=== PATIENT | female | born 1990 | race African-American/Black ===

== ENCOUNTER 2016-07-24 00:49 | Emergency (ER) | payer SELFPAY ==
[~2016-07-24] VITALS: Ht 162.6 cm; Wt 86.0 kg
[~2016-07-24 00:49] MED LIST: BACT800T5 PO; LISI-363 PO
[2016-07-24 00:52] VITALS: BP 184/90; PULSE 60; RESP 18; TEMP 97.4; O2SAT 100
[2016-07-24 09:00] VITALS: BP 161/109; PULSE 58; RESP 16; O2SAT 100
[2016-07-24] MEDS ORDERED: ONDANSETRON HCL 4 MG/2 ML VIAL IV ONE (09:00)
[2016-07-24] MEDS ORDERED: LOPERAMIDE HCL 2 MG CAP PO ONE (09:00)
--- NOTE | 2016-07-24 09:03 | PD ---
HPI Chief Complaint: Abdominal Pain Time Seen by Provider: 08:45 Travel History International Travel<30 days: No Contact w/Intl Traveler<30days: No Traveled to known affect area: No History of Present Illness HPI So well 26 year-old woman, presents emergent [place] of epigastric pain started last night associated with nausea and vomiting and diarrhea today. States she did feel bit of bright red blood in her stool this morning. She otherwise has been feeling generally well and healthy. No definite sick contacts, no travel, no antibiotics recently. Last initial period July 10, she states she is sexually active with women only for the past 7 years. No history of abdominal surgeries. No other complaints. 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 SKIN: Warm and dry. NECK: Trachea midline. No JVD. CARDIOVASCULAR: Regular rate and rhythm. No murmur appreciated. RESPIRATORY: No accessory muscle use. Clear to auscultation. Breath sounds equal bilaterally. GASTROINTESTINAL: Normal contour and appearance. Abdomen is soft. Is no tenderness or guarding at all. RECTAL: Normal external peritonitis hemorrhoids. Just some mucus in the rectal vault. Guaiac negative. MUSCULOSKELETAL: No obvious deformities. No clubbing. No cyanosis. No edema. NEUROLOGICAL: Awake and alert. No obvious cranial nerve deficits. Motor grossly within normal limits. Normal speech. PSYCHIATRIC: Appropriate mood and affect; insight and judgment normal. Data Data Last Documented VS Vital Signs Date Time Temp Pulse Resp B/P Pulse Ox O2 Delivery O2 Flow Rate FiO2 07/24/16 09:00 58 16 161/109 100 Room Air 07/24/16 00:52 97.4 Orders Loperamide (Imodium) (07/24/16 09:00) Ondansetron Inj (Zofran Inj) (07/24/16 09:00) Complete Blood Count With Diff (07/24/16 09:00) Comprehensive Metabolic Panel (07/24/16 09:00) Ed Urine Pregnancytest Poc (07/24/16 09:00) Labs Laboratory Tests Test 07/24/16 09:15 White Blood Count 5.1 TH/MM3 Red Blood Count 4.58 MIL/MM3 Hemoglobin 7.9 GM/DL Hematocrit 26.5 % Mean Corpuscular Volume 57.8 FL Mean Corpuscular Hemoglobin 17.3 PG Mean Corpuscular Hemoglobin 30.0 % Concent Red Cell Distribution Width 18.2 % Platelet Count 395 TH/MM3 Mean Platelet Volume 9.1 FL Neutrophils (%) (Auto) 69.3 % Lymphocytes (%) (Auto) 20.9 % Monocytes (%) (Auto) 8.3 % Eosinophils (%) (Auto) 0.0 % Basophils (%) (Auto) 1.5 % Neutrophils # (Auto) 3.5 TH/MM3 Lymphocytes # (Auto) 1.1 TH/MM3 Monocytes # (Auto) 0.4 TH/MM3 Eosinophils # (Auto) 0.0 TH/MM3 Basophils # (Auto) 0.1 TH/MM3 CBC Comment AUTO DIFF Differential Comment AUTO DIFF CONFIRMED Sodium Level 137 MEQ/L Potassium Level 3.5 MEQ/L Chloride Level 106 MEQ/L Carbon Dioxide Level 23.2 MEQ/L Anion Gap 8 MEQ/L Blood Urea Nitrogen 7 MG/DL Creatinine 0.59 MG/DL Estimat Glomerular Filtration 147 ML/MIN Rate Random Glucose 94 MG/DL Calcium Level 8.7 MG/DL Total Bilirubin 0.2 MG/DL Aspartate Amino Transf 17 U/L (AST/SGOT) Alanine Aminotransferase 11 U/L (ALT/SGPT) Alkaline Phosphatase 138 U/L Total Protein 8.7 GM/DL Albumin 3.6 GM/DL [facility] Medical Decision Making Medical Screen Exam Complete: Yes Emergency Medical Condition: Yes Interpretation(s) LABS: Hemoglobin 7.9, microcytic indices CMP unremarkable Differential Diagnosis Gastroenteritis, food poisoning, colitis, other Narrative Course Medical decision making INITIAL: Well-appearing 18 year-old woman presents with nausea vomiting diarrhea with some bright red blood in the diarrhea. Suspect gastroenteritis some rectal inflammation. I don't think she likely is dysentery. She looks well. She had 2 stools altogether. We'll check basic labs, evaluate stool if she goes while she is in the emergency department, supportive treatment. Diagnosis Primary Impression: Nausea vomiting and diarrhea Additional Impression: Anemia Qualified Code: D64.9 - Anemia, unspecified type Additional Instructions: Take Zofran as needed for nausea or vomiting. Take loperamide as needed for diarrhea. Follow-up with your primary doctor in the next 2-4 days. Not completely well. Return to the emergency department for any worsening abdominal pain, high fevers , or worsening bloody diarrhea. Med/Other Pt SpecificInfo: Prescription(s) given Scripts Loperamide 2 Mg Tab2 Mg PO DIRECTED PRN (DIARRHEA) #8 TAB One tablet after each loose stool. Not to exceed 8 tablets per day. Prov:Noah Ruth MD 07/24/16 Ondansetron Odt (Zofran Odt)4 Mg Tab4 Mg SL Q8HR PRN (Nausea/Vomiting) #15 TAB May substitute non-ODT form. Prov:Noah Ruth MD 07/24/16 Ferrous Sulfate (Iron)325 Mg Dta315 Mg PO DAILY 30 Days Ref 0 Take Prov:Noah Ruth MD 07/24/16 Disposition: 01 DISCHARGE HOME Condition: Stable Noah Ruth MD Jul 24, 2016 09:03
[2016-07-24] MEDS ORDERED: LISI40TA PO (09:05)
[2016-07-24 09:54] LABS: AUTOMATED NEUTROPHIL # 3.5 TH/MM3 (1.8-7.7); BASOPHIL # 0.1 TH/MM3 (0-0.2); BASOPHIL % 1.5 % (0.0-2.0); HEMATOCRIT 26.5 % (35.0-46.0); LYMPH % 20.9 % (9.0-44.0); LYMPHOCYTE # 1.1 TH/MM3 (1.0-4.8); MEAN CELL VOLUME 57.8 FL (80.0-100.0); MEAN CORPUSCULAR HEMOGLOBIN 17.3 PG (27.0-34.0); MONO % 8.3 % (0.0-8.0); NEUT % 69.3 % (16.0-70.0); PLATELET COUNT 395 TH/MM3 (150-450); RED BLOOD COUNT 4.58 MIL/MM3 (4.00-5.30); RED CELL DISTRIBUTION WIDTH 18.2 % (11.6-17.2); WHITE BLOOD COUNT 5.1 TH/MM3 (4.0-11.0)
[2016-07-24 09:56] LABS: HEMO FLAGS AUTO DIFF
[2016-07-24 10:18] LABS: ANION GAP 8 MEQ/L (5-15); AST (GOT) 17 U/L (15-37); BICARBONATE 23.2 MEQ/L (21.0-32.0); BLOOD UREA NITROGEN 7 MG/DL (7-18); CHLORIDE 106 MEQ/L (98-107); GLOMERULAR FILTRATION RATE 147 ML/MIN (>89); POTASSIUM 3.5 MEQ/L (3.5-5.1); SODIUM (NA) 137 MEQ/L (136-145)
[2016-07-24 10:21] LABS: ALKALINE PHOSPHATASE 138 U/L (45-117); ALT (GPT) 11 U/L (10-53); TOTAL BILIRUBIN ADULT 0.2 MG/DL (0.2-1.0)
[2016-07-24 10:25] LABS: SCAN/DIFF AUTO DIFF CONFIRMED
[2016-07-24] MEDS ORDERED: LOPE2TAB3 PO (10:28)
[2016-07-24] MEDS ORDERED: ZOFR4TAB3 SL (10:28)
[2016-07-24] MEDS ORDERED: FERR1TAB36 PO (10:28)
== END 2016-07-24 11:06 | disposition home or self-care (01) ==
LOC: NEPC 00:49
DX: R11.2 Nausea with vomiting, unspecified (principal); R19.7 Diarrhea, unspecified; D64.9 Anemia, unspecified; I10 Essential (primary) hypertension; F17.210 Nicotine dependence, cigarettes, uncomplicated
CPT/HCPCS: 80053; 84703; 85025; 96374; 99284; J2405

== ENCOUNTER 2017-06-28 00:08 | Observation (INO) | payer SELFPAY ==
[2017-06-28] VITALS (9 sets, daily range): BP systolic 129–169; BP diastolic 73–113; PULSE 70–111; RESP 18–20; TEMP 97.6–98.8; O2SAT 100
[~2017-06-28] VITALS: Ht 162.6 cm; Wt 95.0 kg
[~2017-06-28 00:08] MED LIST changes: -BACT800T5 PO; +FERR1TAB36 PO; -LISI-363 PO; +LISI40TA PO; +LOPE2TAB3 PO; +ZOFR4TAB3 SL
--- NOTE | 2017-06-28 00:55 | RADRPT ---
EXAM DATE/TIME: 06/28/2017 00:46 [facility] COMPARISON: CHEST SINGLE AP, June 14, 2014, 16:21. INDICATIONS : Cough. MEDICAL HISTORY : None. SURGICAL HISTORY : None. ENCOUNTER: Initial ACUITY: 1 day PAIN SCORE: 0/10 LOCATION: Bilateral chest FINDINGS: A single view of the chest demonstrates the lungs to be symmetrically aerated without evidence of mas s, infiltrate or effusion. The cardiomediastinal contours are unremarkable. Osseous structures are intact. CONCLUSION: The lungs are clear. Clement Martinez MD on June 28, 2017 at 0:53 Board Certified Radiologist. This report was verified electronically.
--- NOTE | 2017-06-28 01:06 | PD ---
HPI Chief Complaint: Dizziness Time Seen by Provider: 00:25 Travel History International Travel<30 days: No Contact w/Intl Traveler<30days: No Traveled to known affect area: No History of Present Illness HPI The patient is a 27 year old female who presents to the [facility] emergency department with a history of headache that began 4 days ago. The headache was located at the back of her head. It is a throbbing sensation. The pain is constant. This afternoon just after 4PM, she began to have blurry and double vision with the two images horizontally next to each other. Then since arriving in the ER she began to have tingling in her right face and right finger tips. She denies any weakness in her arms or legs. She has been out of her bp med lisinopril for a year. She denies taking aspirin or blood thinners daily, however she reports having a TIA last year. On review of systems otherwise, the patient denies having any known recent fevers, cough, neck pain, chest pain, shortness of breath, abdominal pain, diarrhea, urinary symptoms, or other neurologic symptoms. She has congestion that started tonight. She has had n/v x2 that began tonight. LMP: 06/21/2017. [facility] Past Medical History Narrative Medical The patient's past medical history is significant for hypertension, tia, asthma , hyperlipidemia, anemia. Asthma: Yes Autoimmune Disease: No Blood Disorders: No Anxiety: No Depression: No Heart Rhythm Problems: No Cancer: Yes (LYMPHOMA 12/28-DID NOT FINISH TREATMENT BUT SAYS SHE IS CANCER FREE ) Cardiovascular Problems: Yes (HIGH BLOOD PRESSURE) High Cholesterol: Yes (unsure) Chemotherapy: No Chest Pain: Yes Congestive Heart Failure: No COPD: No Cerebrovascular Accident: Yes (TIA FEBRUARY 2014) Diabetes: No Diminished Hearing: No Endocrine: No Gastrointestinal Disorders: No Genitourinary: No Headaches: No Hepatitis: No Hiatal Hernia: No Heparin Induced Thrombocytopen: No Hypertension: Yes Immune Disorder: No Implanted Vascular Access Dvce: No Kidney Stones: No Musculoskeletal: No Neurologic: Yes Psychiatric: No Reproductive: No Respiratory: Yes (ASTHMA) Immunizations Current: Yes Radiation Therapy: No Renal Failure: No Seizures: No Sickle Cell Disease: No Sleep Apnea: No Thyroid Disease: No Ulcer: No Tetanus Vaccination: Unknown Influenza Vaccination: No ?: Not LMP: 06/21/2017 : 0 Past Surgical History Surgical History: No Previous Surgery AICD: No Arteriovenous Shunt: No Insulin Pump: No Joint Replacement: No Pacemaker: No Other Surgery: No Social History Alcohol Use: No Tobacco Use: Yes (1/2 PPD) Substance Use: No Allergies-Medications (Allergen,Severity, Reaction): Coded Allergies: amoxicillin (Unverified Allergy, Severe, Rash, 06/28/17) Reported Meds & Prescriptions Reported Meds & Active Scripts Active Reported Lisinopril 40 Mg Tab 40 Mg PO DAILY Review of Systems Except as stated in HPI: all other systems reviewed are Neg General / Constitutional: No: Fever Eyes: No: Visual changes HENT: Positive: Headaches, No: Neck Stiffness, Neck Pain Cardiovascular: No: Chest Pain or Discomfort, Dyspnea on exertion Respiratory: No: Shortness of Breath Gastrointestinal: No: Abdominal Pain Genitourinary: No: Dysuria Musculoskeletal: No: Pain Skin: No Rash Neurologic: Positive: Focal Abnormalities, Headache, Paresthesia, Sensory Disturbance, No: Weakness, Change in Mentation, Slurred Speech Psychiatric: No: Depression Endocrine: No: Polydipsia Hematologic/Lymphatic: No: Easy Bruising Physical Exam Narrative General: The patient is a well-developed well-nourished female in no acute distress. Head and Neck exam: Head is normocephalic atraumatic. Eyes: EOMI, pupils are equal round and reactive to light. Nose: Midline septum with pink mucous membranes Mouth: Dentition unremarkable. Moist mucus membranes. Posterior oropharynx is not erythematous. No tonsillar hypertrophy. Uvula midline. Airway patent. Neck: No palpable lymphadenopathy. No nuchal rigidity. No thyromegaly. Cardiovascular: Regular rate and rhythm without murmurs, gallops, or rubs. Lungs: Clear to auscultation bilaterally. No wheezes, rhonchi, or rales. Abdomen: Soft, without tenderness to palpation in all 4 quadrants of the abdomen. No guarding, rebound, or rigidity. Normal bowel sounds are audible. No tenderness on palpation of McBurney's point. Extremities: No clubbing, cyanosis, or edema. 2+ pulses in all 4 extremities. No calf tenderness on palpation. Back: No costovertebral angle tenderness to palpation. Neurologic Exam: Cranial nerves 2-12 were intact on exam. Strength is 5/5 in all 4 extremities. No sensory deficits noted. No dysdiadochokinesis. Skin Exam: No rash noted. Intact skin that is warm and dry. Data Data Last Documented VS Vital Signs Date Time Temp Pulse Resp B/P (MAP) Pulse Ox O2 Delivery O2 Flow Rate FiO2 06/28/17 00:10 98.8 111 18 169/113 (131) 100 Orders Orders Electrocardiogram (06/28/17:) Complete Blood Count With Diff (06/28/17) Comprehensive Metabolic Panel (06/28/17) Creatine Kinase (Cpk) (06/28/17) Ckmb (Isoenzyme) Profile (06/28/17) Troponin I (06/28/17) Prothrombin Time / Inr (Pt) (06/28/17) Act Partial Throm Time (Ptt) (06/28/17) Lipase (06/28/17) Urinalysis - C+S If Indicated (06/28/17) Chest, Single Ap (06/28/17) Ct Brain W/O Iv Contrast(Rout) (06/28/17) Iv Access Insert/Monitor (06/28/17) Ecg Monitoring (06/28/17) Oximetry (06/28/17) Ed Urine Pregnancytest Poc (06/28/17:) Drug Screen, Random Urine (06/28/17:) Alcohol (Ethanol) (06/28/17:) CKMB (06/28/17 00:50) CKMB% (06/28/17 00:50) Sodium Chlor 0.9% 1000 Ml Inj (Ns 1000 M (06/28/17 03:15) Aspirin Ec (Ecotrin Ec) (06/28/17 03:15) [place] (06/28/17 03:01) Admit Order (Ed Use Only) (06/28/17 03:02) Labs Laboratory Tests Test 06/28/17 00:40 06/28/17 00:50 Urine Color YELLOW Urine Turbidity CLEAR Urine pH 5.5 Urine Specific [place] 1.013 Urine Protein NEG mg/dL Urine Glucose (UA) NEG mg/dL Urine Ketones NEG mg/dL Urine Occult Blood NEG Urine Nitrite NEG Urine Bilirubin NEG Urine Urobilinogen LESS THAN 2.0 MG/DL Urine Leukocyte Esterase NEG Urine RBC LESS THAN 1 /hpf Urine WBC LESS THAN 1 /hpf Urine Squamous Epithelial Cells 3 /hpf Urine Hyaline Casts 4 /lpf Microscopic Urinalysis Comment CULT NOT INDICATED Urine Opiates Screen NEG Urine Barbiturates Screen NEG Urine Amphetamines Screen NEG Urine Benzodiazepines Screen NEG Urine Cocaine Screen NEG Urine Cannabinoids Screen POS White Blood Count 7.0 TH/MM3 Red Blood Count 4.55 MIL/MM3 Hemoglobin 8.3 GM/DL Hematocrit 26.9 % Mean Corpuscular Volume 59.2 FL Mean Corpuscular Hemoglobin 18.2 PG Mean Corpuscular Hemoglobin Concent 30.8 % Red Cell Distribution Width 19.0 % Platelet Count 405 TH/MM3 Mean Platelet Volume 7.3 FL Neutrophils (%) (Auto) 70.5 % Lymphocytes (%) (Auto) 20.2 % Monocytes (%) (Auto) 8.7 % Eosinophils (%) (Auto) 0.3 % Basophils (%) (Auto) 0.3 % Neutrophils # (Auto) 4.9 TH/MM3 Lymphocytes # (Auto) 1.4 TH/MM3 Monocytes # (Auto) 0.6 TH/MM3 Eosinophils # (Auto) 0.0 TH/MM3 Basophils # (Auto) 0.0 TH/MM3 CBC Comment DIFF FINAL Differential Comment Prothrombin Time 11.1 SEC Prothromb Time International Ratio 1.1 RATIO Activated Partial Thromboplast Time 27.8 SEC Blood Urea Nitrogen 13 MG/DL Creatinine 0.91 MG/DL Random Glucose 86 MG/DL Total Protein 8.9 GM/DL Albumin 3.9 GM/DL Calcium Level 9.2 MG/DL Alkaline Phosphatase 144 U/L Aspartate Amino Transf (AST/SGOT) 23 U/L Alanine Aminotransferase (ALT/SGPT) 12 U/L Total Bilirubin 0.3 MG/DL Sodium Level 137 MEQ/L Potassium Level 3.6 MEQ/L Chloride Level 104 MEQ/L Carbon Dioxide Level 24.3 MEQ/L Anion Gap 9 MEQ/L Estimat Glomerular Filtration Rate 88 ML/MIN Hemoglobin A1c 5.7 % Iron Level 14 MCG/DL Total Iron Binding Capacity 496 MCG/DL Percent Iron Saturation 2.8 % Ferritin 5 NG/ML Total Creatine Kinase 140 U/L Creatine Kinase MB 0.7 NG/ML Troponin I LESS THAN 0.02 NG/ML Lipase 130 U/L Thyroid Stimulating Hormone 3rd Gen 4.320 uIU/ML Ethyl Alcohol Level LESS THAN 3 MG/DL MDM Medical Decision Making Medical Screen Exam Complete: Yes Emergency Medical Condition: Yes Medical Record Reviewed: Yes Interpretation(s) Last Impressions Head CT 06/28/17 0026 Signed Impressions: Service Date/Time: Wednesday, June 28, 2017 02:04 - CONCLUSION: 1. Negative noncontrast CT brain. Clement Martinez MD Chest X-Ray 06/28/17 0026 Signed Impressions: Service Date/Time: Wednesday, June 28, 2017 00:46 - CONCLUSION: The lungs are clear. Clement Martinez MD Head Magnetic Resonance Angiography 06/28/17 0000 Signed Impressions: Service Date/Time: Wednesday, June 28, 2017 08:44 - CONCLUSION: 1. Unremarkable MRA examination of the brain. Specifically, no evidence for large vessel occlusion. Joaquin Denney MD Carotid Artery Ultrasound 06/28/17 0000 Signed Impressions: Service Date/Time: Wednesday, June 28, 2017 07:53 - CONCLUSION: No evidence of significant carotid plaque or hemodynamically significant stenosis. Antegrade flow in both vertebral arteries. Robert Hare MD Brain MRI 06/28/17 0000 Signed Impressions: Service Date/Time: Wednesday, June 28, 2017 08:44 - CONCLUSION: 1. Unremarkable MRI examination the brain. Specifically, no evidence for ischemia or infarction. Joaquin Denney MD Differential Diagnosis Migraine headache with neurologic symptoms, versus TIA, versus cranial nerve palsy Narrative Course During the course of the patients emergency department visit, the patients history, examination, and differential diagnosis were reviewed with the patient. The patient was placed on a computer trainer with oximetry and frequent blood pressure monitoring. The patient had IV access obtained and blood work sent for analysis. The patient had an ECG done on arrival that shows a sinus tachycardia rate of 100, voltage criteria for LVH is noted, QRS duration is 97 ms, QTC 423 ms, nonspecific ST-T wave abnormalities, no acute ST segment elevation is noted. The patient was initially provided aspirin 325 mg by mouth [address] scan of the brain shows no evidence of intracranial hemorrhage. The patient was started on normal saline at 70 mL per hour. The patients laboratory studies were reviewed and remarkable for a white count of 7, hemoglobin 8.3 which is at the patient's baseline, platelets 405, neutrophils 70.5, monocytes 8.7, CMP is unremarkable, cardiac enzymes within normal limits, lipase 130, PT PTT within normal limits, urine drug screen is positive for cannabinoids, alcohol level is less than 3, urinalysis is unremarkable. Radiology studies were reviewed and remarkable for a CT scan of the brain shows no acute abnormality. A chest x-ray that shows no acute abnormality. The patients results were discussed with the patient, including the plan of care. I explained that further testing and/ or monitoring is indicated based on the patients history, examination, and/ or laboratory findings. Therefore, I recommended admission for additional evaluation. The patient expressed understanding and was agreeable with this plan. The patient was admitted to the hospital in stable condition and sent to a bed under the care of [facility]. Physician Communication Physician Communication The patient's case including history, pertinent physical examination findings, and laboratory studies were discussed with Dr. Asencio. It was agreed that the patient would be admitted to the [facility] service. Diagnosis Primary Impression: Headache Qualified Codes: R51 - Headache Additional Impressions: Double vision Paresthesias Martha Robertson MD Jun 28, 2017 01:06
[2017-06-28 01:09] LABS: AUTOMATED NEUTROPHIL # 4.9 TH/MM3 (1.8-7.7); BASOPHIL % 0.3 % (0.0-2.0); EOSINOPHIL % 0.3 % (0.0-4.0); HEMATOCRIT 26.9 % (35.0-46.0); HEMO FLAGS DIFF FINAL; LYMPH % 20.2 % (9.0-44.0); LYMPHOCYTE # 1.4 TH/MM3 (1.0-4.8); MEAN CELL VOLUME 59.2 FL (80.0-100.0); MEAN CORPUSCULAR HEMOGLOBIN 18.2 PG (27.0-34.0); MEAN CORPUSCULAR HGB CONC 30.8 % (32.0-36.0); MONO % 8.7 % (0.0-8.0); NEUT % 70.5 % (16.0-70.0); PLATELET COUNT 405 TH/MM3 (150-450); RED BLOOD COUNT 4.55 MIL/MM3 (4.00-5.30)
[2017-06-28 01:15] LABS: BLOOD, URINE NEG (NEG); COMMENT (UR) CULT NOT INDICATED; CULTURE IF INDICATED CULT NOT INDICATED; GLUCOSE,URINE NEG (NEG); HYALINE CAST, URINE 4 /lpf (RARE); KETONE, URINE NEG (NEG); NITRITE,URINE NEG (NEG); PH, URINE 5.5 (5.0-8.5); SQUAMOUS EPITHELIAL CELL URINE 3 /hpf (0-5); URINE COLOR YELLOW (YELLW/STRAW)
[2017-06-28 01:24] LABS: ALT (GPT) 12 U/L (10-53); ANION GAP 9 MEQ/L (5-15); AST (GOT) 23 U/L (15-37); BICARBONATE 24.3 MEQ/L (21.0-32.0); BLOOD UREA NITROGEN 13 MG/DL (7-18); CHLORIDE 104 MEQ/L (98-107); GLOMERULAR FILTRATION RATE 88 ML/MIN (>89); POTASSIUM 3.6 MEQ/L (3.5-5.1); SODIUM (NA) 137 MEQ/L (136-145)
[2017-06-28 01:28] LABS: ALKALINE PHOSPHATASE 144 U/L (45-117); CREATINE KINASE 140 U/L (26-192); TOTAL BILIRUBIN ADULT 0.3 MG/DL (0.2-1.0)
[2017-06-28 01:35] LABS: APTT (PATIENT) 27.8 SEC (24.3-30.1); INTERNATIONAL NORMALIZED RATIO 1.1 RATIO; PROTHROMBIN TIME - PATIENT 11.1 SEC (9.8-11.6)
[2017-06-28 01:37] LABS: ALCOHOL LESS THAN 3 MG/DL (0-5)
[2017-06-28 01:50] LABS: CKMB 0.7 NG/ML (0.5-3.6)
--- NOTE | 2017-06-28 02:35 | RADRPT ---
EXAM DATE/TIME: 06/28/2017 02:04 [facility] COMPARISON: CT BRAIN W/O CONTRAST, August 09, 2014, 3:19. INDICATIONS : Headaches with dizziness. RADIATION DOSE: 56.77 CTDIvol (mGy) MEDICAL HISTORY : Hypertension. Lymphoma. Asthma SURGICAL HISTORY : None. ENCOUNTER: Initial ACUITY: 1 day PAIN SCALE: 5/10 LOCATION: cranial TECHNIQUE: Multiple contiguous axial images were obtained of the head. Using automated exposure control and adj ustment of the mA and/or kV according to patient size, radiation dose was kept as low as reasonably a chievable to obtain optimal diagnostic quality images. DICOM format image data is available electro nically for review and comparison. FINDINGS: CEREBRUM: The ventricles are normal for age. No evidence of midline shift, mass lesion, hemorrhage or acute in farction. No extra-axial fluid collections are seen. POSTERIOR FOSSA: The cerebellum and brainstem are intact. The 4th ventricle is midline. The cerebellopontine angle i s unremarkable. EXTRACRANIAL: The visualized portion of the orbits is intact. SKULL: The calvaria is intact. No evidence of skull fracture. CONCLUSION: 1. Negative noncontrast CT brain. Clement Martinez MD on June 28, 2017 at 2:33 Board Certified Radiologist. This report was verified electronically.
[2017-06-28] MEDS ORDERED: SODIUM CHLOR 0.9% 1000 ML INJ 1,000 ML IV SCH (03:15)
[2017-06-28] MEDS ORDERED: ASPIRIN EC 325 MG TABEC PO ONE (03:15)
[2017-06-28] MEDS ORDERED: DEXTROSE 50% IN WATER 50 ML VIAL(D50) IV PUSH PRN (04:15)
[2017-06-28] MEDS ORDERED: SODIUM CHLORIDE 0.9% FLUSH 10 ML FLUSH IV FLUSH PRN (04:15)
[2017-06-28] MEDS ORDERED: RESP: ALBUTEROL 2.5 MG/3 ML NEB (PRN) NEB (04:15)
[2017-06-28] MEDS ORDERED: ENALAPRILAT 1.25 MG/ML VIAL IV PUSH PRN (04:15)
[2017-06-28] MEDS ORDERED: GLUCAGON 1 MG/ML VIAL OTHER PRN (04:15)
[2017-06-28] MEDS: INSULIN ASPART SUPPLEMENTAL SCALE SQ SCH ×3 (08:00→17:00)
[2017-06-28] MEDS ORDERED: ASPIRIN 325 MG TAB PO SCH (09:00)
[2017-06-28] MEDS ORDERED: SODIUM CHLORIDE 0.9% FLUSH 10 ML FLUSH IV FLUSH SCH (09:00)
--- NOTE | 2017-06-28 09:34 | RADRPT ---
EXAM DATE/TIME: 06/28/2017 08:44 [facility] COMPARISON: No previous studies available for comparison. INDICATIONS : Right sided arm and face tingling. MEDICAL HISTORY : Hypertension. SURGICAL HISTORY : None. ENCOUNTER: Initial ACUITY: 1 day PAIN SCORE: 0/10 LOCATION: cranial TECHNIQUE: Multiplanar, multisequence MRI of the brain was performed without contrast. FINDINGS: CEREBRUM: The ventricles are normal for age. No evidence of midline shift, mass lesion, hemorrhage or acute in farction. No extraaxial fluid collections are seen. The pituitary gland and suprasellar cistern are normal in configuration. WHITE MATTER: No significant signal abnormalities are seen in the white matter. POSTERIOR FOSSA: The cerebellum and brainstem are intact. The 4th ventricle is midline. The cerebellopontine angle is unremarkable. The cerebellar tonsils are normal in position. DIFFUSION IMAGING: No focal areas of restricted diffusion are seen. No evidence of acute infarction. EXTRACRANIAL: The visualized portions of the orbits and paranasal sinuses are unremarkable. CONCLUSION: 1. Unremarkable MRI examination the brain. Specifically, no evidence for ischemia or infarction. Joaquin Denney MD on June 28, 2017 at 9:30 Board Certified Radiologist. This report was verified electronically.
--- NOTE | 2017-06-28 09:35 | HHI.HP ---
HPI Service [facility] Hospitalists Primary Care Physician No Primary Care Physician Admission Diagnosis TIA versus CVA, medication non-compliance Diagnoses: Chief Complaint: Headache Tingling right side of face Tingling right fingertips N/V Travel History International Travel<30 Days: No Contact w/Intl Traveler <30 Da: No Traveled to Known Affected Are: No History of Present Illness Written by Elena Hudson, acting as scribe for Dr. Oconnell on 06/28/17 at 09: 31. 27yo female with PMHX of TIA 02/2014, iron deficiency anemia, asthma, hypertension and medication noncompliance who presents to [facility] complaining of headache x 4 days with associated tingling in right side of face and fingertips of the right hand. She reports the headache began at the back of her head and she describes it as a throbbing sensation. She began to have blurry double vision yesterday prompting her to come into the ED. She admits to smoking marijuana regularly and last used Jun 21. She reports associated nausea and vomiting. She denies any associated weakness. She denies any history of seizure disorder. Her vision has improved and she denies any vision abnormalities at this time. She continues to have tingling in the fingertips of her right hand. She has been noncompliant with her hypertensive medication Lisinopril having run out of it a year ago. There is reports history of lymphoma with unfinished radiation treatments but patient denies ever having any radiation and following a biopsy 04/2014 was told she does not have lymphoma. Review of Systems Except as stated in HPI: all other systems reviewed are Neg Past Family Social History Past Medical History Hx of TIA 2013 Medication noncompliance Hypertension HLD Iron deficiency anemia Marijuana use Tobacco use Past Surgical History Patient denies any previous surgeries Reported Medications Patient previously on Lisinopril 40mg daily but has not taken for the past year Allergies: Coded Allergies: amoxicillin (Unverified Allergy, Severe, Rash, 06/28/17) Active Ordered Medications Current Medications Medications (Trade) Dose Ordered Sig/Laura Route Start Time Stop Time Status Last Admin Sodium Chloride 1,000 ml @ 70 mls/hr [id number] IV 06/28/17 03:15 06/28/17 03:15 (NS Flush) 2 ml BID IV FLUSH 06/28/17 09:00 06/28/17 09:20 (NS Flush) 2 ml UNSCH PRN IV FLUSH 06/28/17 04:15 (Vasotec Inj) 1.25 mg Q4H PRN IV PUSH 06/28/17 04:15 (Aspirin) 325 mg DAILY PO 06/28/17 09:00 06/28/17 09:21 (NovoLOG SUPPLEMENTAL SCALE) 1 ACHS SQ 06/28/17 08:00 (D50w (Vial) Inj) 50 ml UNSCH PRN IV PUSH 06/28/17 04:15 (Glucagon Inj) 1 mg UNSCH PRN OTHER 06/28/17 04:15 (Albuterol Neb) 2.5 mg Q2HR NEB PRN NEB 06/28/17 04:15 Family History HTN Cancer DM Social History Patient reports tobacco use of 1/2 pack a day. She denies any EtOH use. She smokes marijuana but denies any other drug use. Physical Exam Vital Signs Vital Signs Date Time Temp Pulse Resp B/P (MAP) Pulse Ox O2 Delivery O2 Flow Rate FiO2 06/28/17 08:15 98.4 79 18 142/79 (100) 100 06/28/17 05:21 98.4 83 18 129/81 (97) 100 06/28/17 00:10 98.8 111 18 169/113 (131) 100 Physical Exam GENERAL: This is a well-nourished, well-developed patient, in no apparent distress. Awake and alert. Appears comfortable. SKIN: No rashes, ecchymoses or lesions. Cool and dry. HEAD: Atraumatic. Normocephalic. No temporal or scalp tenderness. EYES: Pupils equal round and reactive. Extraocular motions intact. No scleral icterus. No injection or drainage. ENT: Nose without bleeding or purulent drainage. Throat without erythema, tonsillar hypertrophy or exudate. Uvula midline. Airway patent. NECK: Trachea midline. No lymphadenopathy. Supple, nontender, no meningeal signs. CARDIOVASCULAR: Regular rate and rhythm without murmurs, gallops, or rubs. RESPIRATORY: Clear to auscultation. Breath sounds equal bilaterally. No wheezes , rales, or rhonchi. GASTROINTESTINAL: Abdomen soft, non-tender, nondistended. No hepato-splenomegaly , or palpable masses. No guarding. MUSCULOSKELETAL: Extremities without clubbing, cyanosis, or edema. No joint tenderness, effusion, or edema noted. No calf tenderness. NEUROLOGICAL: Awake and alert. Cranial nerves II through XII grossly intact. Motor and sensory grossly within normal limits. Five out of 5 muscle strength in all muscle groups. No focal neurologic findings appreciated. Normal speech. Laboratory Laboratory Tests Test 06/28/17 00:40 06/28/17 00:50 Urine Color YELLOW Urine Turbidity CLEAR Urine pH 5.5 Urine Specific Colon 1.013 Urine Protein NEG Urine Glucose (UA) NEG Urine Ketones NEG Urine Occult Blood NEG Urine Nitrite NEG Urine Bilirubin NEG Urine Urobilinogen LESS THAN 2.0 Urine Leukocyte Esterase NEG Urine RBC LESS THAN 1 Urine WBC LESS THAN 1 Urine Squamous Epithelial Cells 3 Urine Hyaline Casts 4 Microscopic Urinalysis Comment CULT NOT INDICATED Urine Opiates Screen NEG Urine Barbiturates Screen NEG Urine Amphetamines Screen NEG Urine Benzodiazepines Screen NEG Urine Cocaine Screen NEG Urine Cannabinoids Screen POS White Blood Count 7.0 Red Blood Count 4.55 Hemoglobin 8.3 Hematocrit 26.9 Mean Corpuscular Volume 59.2 Mean Corpuscular Hemoglobin 18.2 Mean Corpuscular Hemoglobin Concent 30.8 Red Cell Distribution Width 19.0 Platelet Count 405 Mean Platelet Volume 7.3 Neutrophils (%) (Auto) 70.5 Lymphocytes (%) (Auto) 20.2 Monocytes (%) (Auto) 8.7 Eosinophils (%) (Auto) 0.3 Basophils (%) (Auto) 0.3 Neutrophils # (Auto) 4.9 Lymphocytes # (Auto) 1.4 Monocytes # (Auto) 0.6 Eosinophils # (Auto) 0.0 Basophils # (Auto) 0.0 CBC Comment DIFF FINAL Differential Comment Prothrombin Time 11.1 Prothromb Time International Ratio 1.1 Activated Partial Thromboplast Time 27.8 Blood Urea Nitrogen 13 Creatinine 0.91 Random Glucose 86 Total Protein 8.9 Albumin 3.9 Calcium Level 9.2 Alkaline Phosphatase 144 Aspartate Amino Transf (AST/SGOT) 23 Alanine Aminotransferase (ALT/SGPT) 12 Total Bilirubin 0.3 Sodium Level 137 Potassium Level 3.6 Chloride Level 104 Carbon Dioxide Level 24.3 Anion Gap 9 Estimat Glomerular Filtration Rate 88 Total Creatine Kinase 140 Creatine Kinase MB 0.7 Troponin I LESS THAN 0.02 Lipase 130 Ethyl Alcohol Level LESS THAN 3 Result Diagram: 06/28/17 0050 06/28/17 0050 Imaging Last Impressions Head CT 06/28/17 0026 Signed Impressions: Service Date/Time: Wednesday, June 28, 2017 02:04 - CONCLUSION: 1. Negative noncontrast CT brain. Clement Martinez MD Chest X-Ray 06/28/17 0026 Signed Impressions: Service Date/Time: Wednesday, June 28, 2017 00:46 - CONCLUSION: The lungs are clear. Clement Martinez MD Head Magnetic Resonance Angiography 06/28/17 0000 Signed Impressions: Service Date/Time: Wednesday, June 28, 2017 08:44 - CONCLUSION: 1. Unremarkable MRA examination of the brain. Specifically, no evidence for large vessel occlusion. Joaquin Denney MD Brain MRI 06/28/17 0000 Signed Impressions: Service Date/Time: Wednesday, June 28, 2017 08:44 - CONCLUSION: 1. Unremarkable MRI examination the brain. Specifically, no evidence for ischemia or infarction. MD Poncho Renner VTE Risk Assessment Caprini VTE Risk Assessment: No/Low Risk (score <= 1) Caprini Risk Assessment Model Point Value = 1 Point Value = 2 Point Value = 3 Point Value = 5 Age 41-60 Minor surgery BMI > 25 kg/m2 Swollen legs Varicose veins or History of unexplained or recurrent spontaneous Oral contraceptives or hormone replacement Sepsis (< 1 month) Serious lung disease, including pneumonia (< 1 month) Abnormal pulmonary function Acute myocardial infarction Congestive heart failure (< 1 month) History of inflammatory bowel disease Medical patient at bed rest Age 61-74 Arthroscopic surgery Major open surgery (> 45 min) Laparoscopic surgery (> 45 min) Malignancy Confined to bed (> 72 hours) Immobilizing plaster cast Central venous access Age >= 75 History of VTE Family history of VTE Factor V Leiden Prothrombin [id number] Lupus anticoagulant Anticardiolipin antibodies Elevated serum homocysteine Heparin-induced thrombocytopenia Other congenital or acquired thrombophilia Stroke (< 1 month) Elective arthroplasty Hip, pelvis, or leg fracture Acute spinal cord injury (< 1 month) Prophylaxis Regimen Total Risk Factor Score Risk Level Prophylaxis Regimen 0-1 Low Early ambulation 2 Moderate Order ONE of the following: *Sequential Compression Device (SCD) *Heparin 5000 units SQ BID 3-4 Higher Order ONE of the following medications: *Heparin 5000 units SQ TID *Enoxaparin/Lovenox 40 mg SQ daily (WT < 150 kg, CrCl > 30 mL/min) *Enoxaparin/Lovenox 30 mg SQ daily (WT < 150 kg, CrCl > 10-29 mL/min) *Enoxaparin/Lovenox 30 mg SQ BID (WT < 150 kg, CrCl > 30 mL/min) AND/OR *Sequential Compression Device (SCD) 5 or more Highest Order ONE of the following medications: *Heparin 5000 units SQ TID (Preferred with Epidurals) *Enoxaparin/Lovenox 40 mg SQ daily (WT < 150 kg, CrCl > 30 mL/min) *Enoxaparin/Lovenox 30 mg SQ daily (WT < 150 kg, CrCl > 10-29 mL/min) *Enoxaparin/Lovenox 30 mg SQ BID (WT < 150 kg, CrCl > 30 mL/min) AND *Sequential Compression Device (SCD) Assessment and Plan Assessment and Plan 27yo female with PMHX of TIA 02/2014, iron deficiency anemia, asthma, hypertension and medication noncompliance who presents to [facility] complaining of headache x 4 days with associated tingling in right side of face and fingertips of the right hand. TIA/CVA vs hypertensive urgency secondary to medication noncompliance vs marijuana use - CT head unremarkable, images personally reviewed - due to history of lymphoma, TIA/CVA workup ordered by child care assistant to include US carotids, MRI/MRA brain and Echocardiogram. Will follow up on results. 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 - recommend patient stop marijuana use - Neurology consulted, appreciate assistance - ASA 325mg given in ED. Continue daily pending Neuro recommendations. - obtain HgbA1c, TSH level and lipid profile - continuous cardiac monitoring - IVF - neuro checks - PT/OT/ST Hypertensive urgency Medication noncompliant - BP 169/113 at ED presentation - improved - Allow permissive HTN for now until MRI result is available ,Vasotec 1.25mg IV q4h prn with parameters - continue to monitor BP Marijuana use Tobaccoism - UDS positive for cannabis - discussed with patient importance of cessation. Patient stated understanding. Asthma Not in acute exacerbation - Duonebs prn - continue to monitor respiratory status Iron deficiency anemia - chronic - appears stable - iron studies ordered - monitor CBC as indicated DVT prophylaxis - bilateral SCD/KIMBERLY hose - early ambulation Code Status Full code Discussed Condition With Patient, nursing staff This note was transcribed by scribe [ Elena Hudson ]. I, Dr. Trip Oconnell personally performed the history, physical exam, and medical decision making; and confirmed the accuracy of the information in the transcribed note. Authenticated by Dr. Trip Oconnell on 06/28/17 at 09:31. Elena Hudson Jun 28, 2017 09:35 Trip Oconnell MD Jun 28, 2017 11:45
--- NOTE | 2017-06-28 09:36 | RADRPT ---
EXAM DATE/TIME: 06/28/2017 08:44 [facility] COMPARISON: MRA BRAIN W/O CONTRAST, March 14, 2014, 16:34. INDICATIONS : Right sided arm and face tingling. MEDICAL HISTORY : Hypertension. SURGICAL HISTORY : None. ENCOUNTER: Initial ACUITY: 1 day PAIN SCORE: 0/10 LOCATION: cranial Please note a normal MRA of the brain does not entirely exclude the possibility of a small aneurysm, nor the possibility of distal intracranial vessel disease. TECHNIQUE: 3D time of flight MRA was performed. Source images, multiplanar STS MIP, and 3D volume MIP reconstru ctions were reviewed. FINDINGS: Anterior circulation: Distal intracranial internal carotid arteries are patent with flow extending to the middle and anteri or cerebral arteries. There is no evidence for aneurysm, vessel truncation or stenosis, and no eviden ce for vascular malformation. Posterior circulation: Symmetric distal vertebral arteries with flow extending to basilar artery. There is no evidence for aneurysm, vessel truncation or stenosis, and no evidence for vascular malformation. CONCLUSION: 1. Unremarkable MRA examination of the brain. Specifically, no evidence for large vessel occlusion. Joaquin Denney MD on June 28, 2017 at 9:32 Board Certified Radiologist. This report was verified electronically.
--- NOTE | 2017-06-28 09:59 | RADRPT ---
EXAM DATE/TIME: 06/28/2017 07:53 [facility] COMPARISON: US CAROTID ARTERIES, March 14, 2014, 16:47. INDICATIONS : Cerebrovascular accident. Headache. Weakness. MEDICAL HISTORY : TIA. Cardiac disorders. Hypercholesterolemia. Hypertension. Chemotherapy. Lymphoma. SURGICAL HISTORY : None. ENCOUNTER: Subsequent ACUITY: 4-6 days PAIN SCORE: 0/10 LOCATION: Bilateral neck PEAK SYSTOLIC VELOCITIES (cm/sec): ICA/CCA RATIO: Right: 1.2 Left: 1.2 ICA: Right: 77 Left: 81 CCA: Right: 67 Left: 67 ECA: Right: 69 Left: 56 VERTEBRAL: Right: 52 antegrade Left: 59 antegrade Elevated flow velocities and ICA/CCA ratios have been found to correlate with increased degrees of vessel stenosis, calculated as percentage of diameter relative to a normal segment of distal ICA/CCA FINDINGS: RIGHT CAROTID: No significant stenosis is visualized. The waveforms are within normal limits. LEFT CAROTID: No significant stenosis is visualized. The waveforms are within normal limits. VERTEBRAL ARTERIES: Antegrade flow is seen in both vertebral arteries. MISCELLANEOUS: None. CONCLUSION: No evidence of significant carotid plaque or hemodynamically significant stenosis. Antegrade flow in both vertebral arteries. Robert Hare MD on June 28, 2017 at 9:56 Board Certified Radiologist. This report was verified electronically.
[2017-06-28 10:01] LABS: TRANSFERRIN IRON PROFILE 354 MG/DL (200-360)
[2017-06-28 10:09] LABS: FERRITIN 5 NG/ML (8-252)
--- NOTE | 2017-06-28 12:54 | EKG ---
Date Performed: 06/28/2017 Time Performed: 00:58:58 PTAGE: 27 years EKG: SINUS TACHYCARDIA VOLTAGE CRITERIA FOR LVH NONSPECIFIC ST & T-WAVE ABNORMALITY ABNORMAL ECG Compared to PREVIOUS TRACING the QRS voltage is higher and the nonspecific T wave abnormalities are new. DOCTOR: Kalia Robertson Interpretating Date/Time 06/28/2017 12:53:06
[2017-06-28 13:49] LABS: HEMOGLOBIN A1a 0.8 %; HEMOGLOBIN A1b 0.8 %; HEMOGLOBIN Ao 85.1 %; HEMOGLOBIN F 0.9 %; HEMOGLOBIN LA1C 1.9 %; HEMOGLOBIN P3 3.7 %
--- NOTE | 2017-06-28 16:39 | MB ---
cc: DELVIS BANGURA M.D. DATE OF CONSULTATION 06/28/2017 DATE OF 1990, 27 years old REASON FOR CONSULTATION Possible TIA. HISTORY OF THE PRESENT ILLNESS A 27-year-old woman with history of TIA back in February of 2014, history of iron deficiency anemia, asthma, hypertension, some medication noncompliance came in with a severe headache and uncontrolled hypertension. She started having some tingling in her right face and right upper extremity. Currently she is back to baseline. Denies any tingling in her arm any longer. No headache. Apparently she was on lisinopril and ran out of it about a year ago. ALLERGIES AMOXICILLIN. PAST SURGICAL HISTORY Denies. FAMILY HISTORY Hypertension, cancer, diabetes. SOCIAL HISTORY Smokes half pack a day. Uses marijuana recreationally. No alcohol abuse. PHYSICAL EXAMINATION VITAL SIGNS: Temperature is 98, heart rate 84, respiratory rate 20, blood pressure 153/73. NECK: Supple. HEART: Regular. NEUROLOGIC: She is awake, alert, oriented and fluent. Pupils reactive. Face symmetrical. Tongue midline. Motor: No drift or leg lag. DTRs are 1-2+. Toes downgoing. Gait is withheld. Sensory is normal. IMAGING STUDIES Brain unremarkable for any acute infarct. MRI draper, MRA [place] was negative for intracranial disease. Carotid ultrasound was negative. LABORATORY DATA Hemoglobin 8.3, platelets 405,000, RDW 19. Coag panel unremarkable. Chemistries iron 14, TIBC 496. Ferritin 5. TSH 4.320. Tox screen positive for cannabinoids. UA negative. IMPRESSION 1. Possible TIA. 2. Uncontrolled hypertension. 3. Iron deficiency anemia. RECOMMENDATIONS If there is no contraindication starting her only on a baby aspirin daily. Proper control of her blood pressure. Start her on antihypertensive. If not done so just for completion get an echo. Continue current care. SCDs and Lovenox for DVT prophylaxis. PT assessment. If stable and the rest of her workup is negative can be discharged home to have her follow up with primary care. Needs to be counseled on smoking well as adequate proper care as well as compliance with medications. MD RAYMUNDO Perez/ONEIDA /3:17 PM /4:28 PM
--- NOTE | 2017-06-28 17:38 | ECHRPT ---
Indication: CVA/TIA CONCLUSIONS Mildly dilated left ventricle. Mild concentric left ventricular hypertrophy. The left ventricular systolic function is low normal with an estimated ejection fraction in the rang e of 50- 55%. The left atrial size is moderately dilated. The right atrial size is moderately dilated. [id number] mitral valve regurgitation. There is mild to moderate tricuspid valve regurgitation. The estimated pulmonary arterial pressure is 28 mmHg. BP: 129 / 81 HR: 83 Rhythm: MEASUREMENTS (Male / Female) Normal Values Technical Quality: 2D ECHO LV Diastolic Diameter PLAX 6.2 cm 4.2 - 5.9 / 3.9 - 5.3 cm LV Systolic Diameter PLAX 4.9 cm IVS Diastolic Thickness 1.0 cm 0.6 - 1.0 / 0.6 - 0.9 cm LVPW Diastolic Thickness 1.0 cm 0.6 - 1.0 / 0.6 - 0.9 cm LV Relative Wall Thickness 0.3 LVOT Diameter 2.1 cm Aortic Root Diameter 2.8 cm LA Systolic Diameter LX 3.6 cm 3.0 - 4.0 / 2.7 - 3.8 cm M-MODE AV Cusp Separation MM 2.2 cm DOPPLER AV Peak Velocity 141.0 cm/s AV Peak Gradient 8.0 mmHg AV Mean Gradient 5.0 mmHg AV Velocity Time Integral 26.0 cm LVOT Peak Velocity 98.5 cm/s LVOT Peak Gradient 3.9 mmHg LVOT Velocity Time Integral 16.9 cm LVOT Cardiac Index 2301.1 cm/minm AV Area Cont Eq vti 2.3 cm AV Area Cont Eq pk 2.4 cm Mitral E Point Velocity 82.4 cm/s Mitral A Point Velocity 44.4 cm/s Mitral E to A Ratio 1.9 LV E' Lateral Velocity 9.6 cm/s Mitral E to LV E' Lateral Ratio 8.6 LV E' Septal Velocity 7.0 cm/s Mitral E to LV E' Septal Ratio 11.7 TR Peak Velocity 210.0 cm/s TR Peak Gradient 17.6 mmHg Right Atrial Pressure 10.0 mmHg Pulmonary Artery Systolic Pressu 27.6 mmHg Right Ventricular Systolic Press 27.6 mmHg PV Peak Velocity 63.2 cm/s PV Peak Gradient 1.6 mmHg FINDINGS LEFT VENTRICLE Mildly dilated left ventricle. Mild concentric left ventricular hypertrophy. The left ventricular systolic function is low normal with an estimated ejection fraction in the rang e of 50- 55%. RIGHT VENTRICLE Normal right ventricular size and systolic function. LEFT ATRIUM The left atrial size is moderately dilated. RIGHT ATRIUM The right atrial size is moderately dilated. ATRIAL SEPTUM Normal atrial septal thickness without atrial level shunting by limited color doppler interrogation. AORTA The aortic root and proximal ascending aorta are normal in size on limited imaging. MITRAL VALVE [id number] mitral valve regurgitation. AORTIC VALVE Trileaflet aortic valve. No aortic valve stenosis or regurgitation. TRICUSPID VALVE There is mild to moderate tricuspid valve regurgitation. The estimated pulmonary arterial pressure is 27.6 mmHg. PULMONARY VALVE No pulmonary valve regurgitation or stenosis. VESSELS The inferior vena cava is normal in size. PERICARDIUM No pericardial effusion. Nicole Hughes MD, FACC (Electronically Signed) Final Date:28 June 2017 17:37
== END 2017-06-28 20:12 | disposition left against medical advice (07) ==
LOC: NEPE 00:08 → NEDA 03:04 → NEPFCDU 05:10
PROVIDERS: ADMIT Hospitalist; ATTEND Hospitalist
DX: I16.0 Hypertensive urgency (principal); R05 Cough; R42 Dizziness and giddiness; R53.1 Weakness; R51 Headache; R20.2 Paresthesia of skin; R11.2 Nausea with vomiting, unspecified; R00.0 Tachycardia, unspecified; H53.2 Diplopia; R94.31 Abnormal electrocardiogram [ECG] [EKG]; I10 Essential (primary) hypertension; E78.00 Pure hypercholesterolemia, unspecified; J45.909 Unspecified asthma, uncomplicated; D50.9 Iron deficiency anemia, unspecified; F12.90 Cannabis use, unspecified, uncomplicated; F17.200 Nicotine dependence, unspecified, uncomplicated; Z91.14 Patient's other noncompliance with medication regimen; Z86.73 Personal history of transient ischemic attack (TIA), and cerebral infarction without residual deficits; Z79.899 Other long term (current) drug therapy
CPT/HCPCS: 70450; 70544; 70551; 71010; 80053; 80307; 81001; 82550; 82552; 82728; 82948; 83036; 83540; 83550; 83690; 84443; 84484; 84703; 85025; 85610; 85730; 92610; 93005; 93306; 93880; 96360; 96361; 97162; 97165; 99285; G0378; G8987; G8988; G8989; G8996; G8997; G8998; J7030